=== PATIENT | female | born 1960 | race Caucasian/White ===

== ENCOUNTER → 2020-05-28 | Outpatient (CLI) | payer BC ==
[~2020-05-28] MED LIST: LANS15CA78 PO; NAPR-695 PO; SCOPOLAMINE 1.5MG PATCH. TD ONE
== END ==
LOC: LAB 10:11 → 3 NORTH 05-31 09:54 → UNDOADMOB 05-31 09:54 → 3 NORTH 05-31 10:50
PROVIDERS: ATTEND Obstetrics & Gynecology
DX: Z01.812 Encounter for preprocedural laboratory examination (principal); Z20.828 Contact with and (suspected) exposure to other viral communicable diseases
CPT/HCPCS: U0003